=== PATIENT | male | born 1990 | race Caucasian/White ===

== ENCOUNTER → 2021-10-08 | Outpatient (CLI) | payer SELFPAY ==
--- NOTE | 2021-10-08 12:22 | ECHOF ---
Referral Reason:R07.89 other chest pain MEASUREMENTS -------- HEIGHT: 182.9 cm WEIGHT: 119.7 kg BP: RVIDd: 3.1 cm (< 3.3) IVSd: 1.0 cm (0.6 - 1.1) LVIDd: 4.5 cm (3.9 - 5.3) LVPWd: 1.0 cm (0.6 - 1.1) IVSs: 1.4 cm LVIDs: 3.0 cm LVPWs: 1.5 cm LA Diam: 3.4 cm (2.7 - 3.8) LAESV Index (A-L): 21.31 ml/m Ao Diam: 3.0 cm (2.0 - 3.7) AV Cusp: 2.3 cm (1.5 - 2.6) MV EXCURSION: 17.007 mm (> 18.000) MV EF SLOPE: 79 mm/s (70 - 150) EPSS: 0.3 cm MV E Aj: 0.59 m/s MV DecT: 202 ms MV A Aj: 0.49 m/s MV E/A Ratio: 1.22 RAP: 5.00 mmHg RVSP: 24.08 mmHg FINDINGS -------- Sinus rhythm. This was a technically adequate study. LV size, wall thickness and systolic function are normal, with an EF greater than 55%. The left kenneth tricular size is normal. The diastolic filling pattern is normal for the age of the patient 5.72. The right ventricle is normal in size. Normal LA size by volume 22+/-6 ml/m2. The right atrial size is normal. The aortic valve is trileaflet, and appears structurally normal. No aortic stenosis or regurgitation. The mitral valve is normal. Mild mitral regurgitation is present. The tricuspid valve appears structurally normal. Mild tricuspid regurgitation present. Right vent ricular systolic pressure is normal at < 35 mmHg. There is no pulmonic regurgitation present. The aortic root size is normal. There is no pericardial effusion. CONCLUSIONS -------- 1. LV size, wall thickness and systolic function are normal, with an EF greater than 55%. 2. Normal LA size by volume 22+/-6 ml/m2. 3. The aortic valve is trileaflet, and appears structurally normal. No aortic stenosis or regurgitati on. 4. Mild mitral regurgitation is present. 5. Mild tricuspid regurgitation present. 6. There is no pericardial effusion. RN SUPPLEMENTAL: Mary Beth Valentin RDCS
--- NOTE | 2021-10-08 15:15 | EST ---
EXERCISE STRESS AGE: 30 SEX: M HT: 6' WT: 265 lbs. PROTOCOL: Boni STAGE: 4 DURATION OF EXERCISE: 9:30 HEART RATE REST: 90 BLOOD PRESSURE REST: 135/85 MAXIMUM HEART RATE ACHIEVED: 176 MAXIMUM BLOOD PRESSURE: 176 85% MPHR: 162 100% MPHR: 190 METS: 10.9 RESULTS: Baseline rhythm is sinus mechanism with sinus arrhythmia, rate of 90, normal axis and intervals. Normal electrocardiogram. Baseline blood pressure 135/85 mmHg. Patient exercised on Boni protocol for 9 minutes, 30 seconds reaching peak rate of 176 beats per minute, which is equal to 93% maximum predicted heart rate. Peak blood pressure 161/72 mmHg. Test was terminated secondary to fatigue. There was no chest pain. Electrocardiograph monitoring revealed no evidence of diagnostic ischemic ST deviation. CONCLUSION: 1. Average exercise tolerance. 2. Normal echocardiograph response to exercise with no evidence of exercise-induced ischemia. MMODL / IJN: [id number] /
== END | disposition home or self-care (01) ==
LOC: RADNMMAIN 08:50
PROVIDERS: ATTEND Family Medicine
DX: I08.1 Rheumatic disorders of both mitral and tricuspid valves (principal)
CPT/HCPCS: 93017; 93306